=== PATIENT | female | born 1985 | race Caucasian/White ===

== ENCOUNTER 2016-05-06 06:36 | Emergency (ER) | payer SELFPAY ==
[~2016-05-06] VITALS: Ht 152.4 cm; Wt 90.9 kg
[~2016-05-06 06:36] MED LIST: ALBUTEROL17 GM IH; ASACOL400 MG PO; ATARAX10 MG; CELEXA20 MG PO; DOXYCYCLINE HY100 M3 PO; DOXYCYCLINE HY100 MG PO; FLONASE16 GM NS; HYDRALAZINE HCL10 MG PO; IBUPROFEN600 MG PO; LEVAQUIN500 MG PO; PRILOSEC40 MG PO; REMERON15 M2 PO; SERTRALINE HCL50 MG; SYNTHROID100 MCG PO; SYNTHROID25 MCG PO; SYNTHROID50 MCG PO; SYNTHROID75 MCG PO; VALTREX1000 MG PO; VIBRAMYCIN100 MG PO; VICODIN ES 7.51 EAC1 PO
[2016-05-06] MEDS ORDERED: NAPROSYN500 MG PO (07:30)
[2016-05-06] MEDS ORDERED: FLEXERIL10 MG PO (07:38)
[2016-05-06] MEDS ORDERED: MEDROL DOSEPAK4 MG PO (07:38)
[2016-05-06 10:29] LABS: HEMATOCRIT 43.7 % (36.0-46.0); MCH 32.9 PG (29.0-34.0); MCHC 33.9 G/DL (30.0-36.0); MCV 97.1 FL (83-99); MEAN PLAT.VOLUME 9.9 uM^3 (9.5-12.4); PLATELET COUNT 205 K/uL (156-360); RBC DIS.WIDTH-CV 12.8 % (11.8-14.6); RBC DIS.WIDTH-SD 43.8 % (39-53); WHITE BLOOD COUNT 16.9 K/uL (4.1-10.2)
[2016-05-06 10:38] LABS: CHLORIDE 106 mEq/L (99-109); POTASSIUM 4.2 mEq/L (3.7-5.4); SODIUM 138 mEq/L (136-147)
[2016-05-06 10:39] LABS: GLUCOSE 126 mg/dL (70-99)
[2016-05-06 10:41] LABS: ANION GAP 9 MEQ/L (2-14)
[2016-05-06 10:43] LABS: GFR ESTIMATE (CALCULATED) > 59 mL/min/
[2016-05-06 10:44] LABS: UREA NITROGEN (BUN) 9 mg/dL (9-23)
[2016-05-06 11:03] LABS: TROP-I INTERPRETATION NEGATIVE; TROPONIN-I < 0.01 ng/mL (0.0-0.30)
[2016-05-06 13:30] LABS: PROTHROMBIN TIME 10.4 (9.2-11.2); PTT 26.8 (25-32)
[2016-05-06 13:34] LABS: CREATINE KINASE 59 IU/L (1-294); TOTAL CK 59 IU/L (1-294)
[2016-05-06 13:42] LABS: CK-MB 0.5 ng/mL (0.0-4.9)
[2016-05-06 16:18] VITALS: BP 121/78
== END 2016-05-06 16:19 | disposition short-term general hospital (02) ==
LOC: EME 06:36
PROVIDERS: Emergency Medicine
DX: I71.4 Abdominal aortic aneurysm, without rupture (principal); I74.09 Other arterial embolism and thrombosis of abdominal aorta; M54.5 Low back pain; M25.552 Pain in left hip; M79.605 Pain in left leg; F17.200 Nicotine dependence, unspecified, uncomplicated
CPT/HCPCS: 71275; 72100; 73502; 75635; 80048; 82550; 82553; 83605; 84484; 85027; 85610; 85730; 87040; 93926; 99281; 99284; J1100; J2060; J2405; J3010

== ENCOUNTER 2016-05-26 10:02 | Emergency (ER) | payer SELFPAY ==
[~2016-05-26] VITALS: Ht 152.4 cm; Wt 91.0 kg
[~2016-05-26 10:02] MED LIST changes: +FLEXERIL10 MG PO; +MEDROL DOSEPAK4 MG PO; +NAPROSYN500 MG PO
[2016-05-26 12:30] LABS: HEMATOCRIT 33.3 % (36.0-46.0); MCH 32.4 PG (29.0-34.0); MCHC 32.1 G/DL (30.0-36.0); MCV 100.9 FL (83-99); MEAN PLAT.VOLUME 10.5 uM^3 (9.5-12.4); NRBC (%) 0.2 /100 WBC (0-0); RBC DIS.WIDTH-CV 14.6 % (11.8-14.6); RBC DIS.WIDTH-SD 54.1 % (39-53)
[2016-05-26 12:35] LABS: PLATELET COUNT 485 K/uL (156-360); WHITE BLOOD COUNT 9.9 K/uL (4.1-10.2)
[2016-05-26 13:05] LABS: ANION GAP 9 MEQ/L (2-14); CHLORIDE 104 MEQ/L (99-109); GFR ESTIMATE (CALCULATED) > 59 mL/min/; GLUCOSE 94 mg/dL (70-99); SAMPLE HEMOLYSIS CHECK 2; SAMPLE ICTERIC CHECK 0; SAMPLE LIPEMIA CHECK 0; SODIUM 139 MEQ/L (136-147); UREA NITROGEN (BUN) 9 mg/dL (9-23)
[2016-05-26 13:23] LABS: CREATINE KINASE 166 IU/L (1-294); POTASSIUM 4.4 MEQ/L (3.7-5.4); TOTAL CK 166 IU/L (1-294)
[2016-05-26] MEDS ORDERED: XARELTO15 MG PO (13:35)
[2016-05-26] MEDS ORDERED: ASPIRIN81 M2 PO (13:35)
[2016-05-26] MEDS ORDERED: DILAUDID2 MG PO (13:36)
[2016-05-26] MEDS ORDERED: GABAPENTIN100 MG PO (13:37)
[2016-05-26] MEDS ORDERED: LEVOTHYROXINE100 MCG PO (13:37)
[2016-05-26] MEDS ORDERED: PERCOCET 5/31 TABLET PO (15:27)
[2016-05-26] MEDS ORDERED: NEURONTIN100 MG PO (15:27)
[2016-05-26 16:09] VITALS: BP 99/72
== END 2016-05-26 16:10 | disposition home or self-care (01) ==
LOC: EME 10:02
PROVIDERS: Emergency Medicine
DX: G89.18 Other acute postprocedural pain (principal); R10.9 Unspecified abdominal pain; M79.605 Pain in left leg; Z86.718 Personal history of other venous thrombosis and embolism; Z86.711 Personal history of pulmonary embolism; Z79.01 Long term (current) use of anticoagulants; Z79.82 Long term (current) use of aspirin; E03.9 Hypothyroidism, unspecified; F17.200 Nicotine dependence, unspecified, uncomplicated
CPT/HCPCS: 75635; 80048; 82550; 82553; 83605; 85027; 99281; 99285; J2270; J2405; J3010

== ENCOUNTER 2016-06-14 00:57 | Emergency (ER) | payer SELFPAY ==
[~2016-06-14] VITALS: Ht 152.4 cm; Wt 90.9 kg
[~2016-06-14 00:57] MED LIST changes: +ASPIRIN81 M2 PO; +DILAUDID2 MG PO; +GABAPENTIN100 MG PO; +LEVOTHYROXINE100 MCG PO; +NEURONTIN100 MG PO; +PERCOCET 5/31 TABLET PO; +XARELTO15 MG PO
[2016-06-14] MEDS ORDERED: NEURONTIN100 MG PO (01:57)
[2016-06-14] MEDS ORDERED: PERCOCET 5/31 TABLET PO (01:57)
[2016-06-14 02:10] VITALS: BP 104/66
== END 2016-06-14 02:12 | disposition home or self-care (01) ==
LOC: EME 00:57
DX: G89.18 Other acute postprocedural pain (principal); M79.675 Pain in left toe(s); Z86.711 Personal history of pulmonary embolism; Z86.718 Personal history of other venous thrombosis and embolism; Z79.01 Long term (current) use of anticoagulants; Z79.82 Long term (current) use of aspirin; E03.9 Hypothyroidism, unspecified; F17.200 Nicotine dependence, unspecified, uncomplicated
CPT/HCPCS: 99281; 99284; J3010

== ENCOUNTER 2016-07-01 03:59 | Emergency (ER) | payer OTHER ==
[~2016-07-01] VITALS: Ht 152.4 cm; Wt 89.9 kg
[2016-07-01 05:46] LABS: CHLORIDE 107 mEq/L (99-109); POTASSIUM 3.7 mEq/L (3.7-5.4); SODIUM 140 mEq/L (136-147)
[2016-07-01 05:48] LABS: GLUCOSE 111 mg/dL (70-99)
[2016-07-01 05:50] LABS: ANION GAP 11 MEQ/L (2-14)
[2016-07-01 05:52] LABS: GFR ESTIMATE (CALCULATED) > 59 mL/min/
[2016-07-01 05:53] LABS: UREA NITROGEN (BUN) 7 mg/dL (9-23)
[2016-07-01 05:55] LABS: HEMATOCRIT 42.7 % (36.0-46.0); MCH 29.2 PG (29.0-34.0); MCHC 31.9 G/DL (30.0-36.0); MCV 91.8 FL (83-99); MEAN PLAT.VOLUME 10.5 uM^3 (9.5-12.4); PLATELET COUNT 353 K/uL (156-360); RBC DIS.WIDTH-CV 14.7 % (11.8-14.6); RBC DIS.WIDTH-SD 49.8 % (39-53); RED BLOOD COUNT 4.65 M/uL (3.80-5.20); WHITE BLOOD COUNT 9.3 K/uL (4.1-10.2)
[2016-07-01 06:19] LABS: INTER. NORMALIZED RATIO 1.2; PROTHROMBIN TIME 12.2 (9.2-11.2); PTT 32.4 (25-32)
[2016-07-01] MEDS ORDERED: PERCOCET 7.51 TABLET PO (07:29)
[2016-07-01 07:58] VITALS: BP 103/66
== END 2016-07-01 08:00 | disposition home or self-care (01) ==
LOC: EME 03:59
PROVIDERS: Emergency Medicine
DX: I96 Gangrene, not elsewhere classified (principal); G62.9 Polyneuropathy, unspecified; E03.9 Hypothyroidism, unspecified; Z86.718 Personal history of other venous thrombosis and embolism; Z86.711 Personal history of pulmonary embolism; Z79.02 Long term (current) use of antithrombotics/antiplatelets; F17.200 Nicotine dependence, unspecified, uncomplicated
CPT/HCPCS: 73630; 80048; 83605; 85027; 85610; 85730; 99281; 99284; J1170

== ENCOUNTER 2016-11-10 17:14 | Emergency (ER) | payer OTHER ==
[~2016-11-10] VITALS: Ht 152.4 cm; Wt 94.5 kg
[~2016-11-10 17:14] MED LIST changes: +PERCOCET 7.51 TABLET PO
[2016-11-10] MEDS ORDERED: DOXYCYCLINE HY100 MG PO (18:13)
[2016-11-10 18:45] VITALS: BP 112/69
== END 2016-11-10 18:52 | disposition home or self-care (01) ==
LOC: EME 17:14
DX: L03.113 Cellulitis of right upper limb (principal); Z88.0 Allergy status to penicillin; Z88.1 Allergy status to other antibiotic agents; Z88.6 Allergy status to analgesic agent; F17.200 Nicotine dependence, unspecified, uncomplicated
CPT/HCPCS: 99281; 99283

== ENCOUNTER 2017-01-03 17:07 | Emergency (ER) | payer OTHER ==
[~2017-01-03] VITALS: Ht 152.4 cm; Wt 97.3 kg
[2017-01-03 17:54] LABS: HEMATOCRIT 44.9 % (36.0-46.0); MCH 32.1 PG (29.0-34.0); MCHC 33.4 G/DL (30.0-36.0); MCV 96.1 FL (83-99); MEAN PLAT.VOLUME 10.3 uM^3 (9.5-12.4); PLATELET COUNT 311 K/uL (156-360); RBC DIS.WIDTH-CV 13.3 % (11.8-14.6); RBC DIS.WIDTH-SD 47.2 % (39-53); RED BLOOD COUNT 4.67 M/uL (3.80-5.20)
[2017-01-03 18:09] LABS: CHLORIDE 106 mEq/L (99-109); POTASSIUM 3.7 mEq/L (3.7-5.4); SODIUM 139 mEq/L (136-147)
[2017-01-03 18:11] LABS: GLUCOSE 92 mg/dL (70-99)
[2017-01-03 18:12] LABS: ANION GAP 12 MEQ/L (2-14)
[2017-01-03 18:15] LABS: GFR ESTIMATE (CALCULATED) > 59 mL/min/; UREA NITROGEN (BUN) 8 mg/dL (9-23)
[2017-01-03 18:17] LABS: TROP-I INTERPRETATION NEGATIVE; TROPONIN-I < 0.01 ng/mL (0.0-0.30)
[2017-01-03 18:24] LABS: QUANTITATIVE HCG < 4.0 MIU/ML
[2017-01-03 19:20] LABS: D-DIMER ELISA < 150.00 ng/mLDDU (<230)
[2017-01-03 20:56] VITALS: BP 100/76
== END 2017-01-03 20:32 | disposition left against medical advice (07) ==
LOC: EME 17:07
PROVIDERS: Nurse Practitioner Family
DX: R07.2 Precordial pain (principal); Z86.718 Personal history of other venous thrombosis and embolism; Z86.711 Personal history of pulmonary embolism; E03.9 Hypothyroidism, unspecified; Z79.01 Long term (current) use of anticoagulants; Z79.82 Long term (current) use of aspirin; F17.200 Nicotine dependence, unspecified, uncomplicated; Z53.20 Procedure and treatment not carried out because of patient's decision for unspecified reasons
CPT/HCPCS: 71020; 80048; 84484; 84702; 85027; 85379; 93005; 99281; 99282

== ENCOUNTER 2017-03-05 14:12 | Emergency (ER) | payer OTHER ==
[~2017-03-05] VITALS: Ht 152.4 cm; Wt 100.6 kg
[2017-03-05] MEDS ORDERED: NAPROSYN500 MG PO (17:45)
[2017-03-05] MEDS ORDERED: FLEXERIL10 MG PO (17:45)
[2017-03-05 17:55] VITALS: BP 106/74
== END 2017-03-05 17:56 | disposition home or self-care (01) ==
LOC: EME 14:12
DX: M79.621 Pain in right upper arm (principal); M54.2 Cervicalgia; D68.2 Hereditary deficiency of other clotting factors; Z86.718 Personal history of other venous thrombosis and embolism; Z86.711 Personal history of pulmonary embolism; E03.9 Hypothyroidism, unspecified; J45.909 Unspecified asthma, uncomplicated; F41.9 Anxiety disorder, unspecified; F32.9 Major depressive disorder, single episode, unspecified; F17.200 Nicotine dependence, unspecified, uncomplicated; Z79.01 Long term (current) use of anticoagulants; Z79.82 Long term (current) use of aspirin; Z88.5 Allergy status to narcotic agent; Z88.2 Allergy status to sulfonamides; Z88.1 Allergy status to other antibiotic agents; Z88.0 Allergy status to penicillin; Z88.6 Allergy status to analgesic agent
CPT/HCPCS: 93971; 99281; 99284

== ENCOUNTER 2017-05-04 11:51 | Emergency (ER) | payer OTHER ==
[~2017-05-04] VITALS: Ht 152.4 cm; Wt 104.5 kg
[2017-05-04 16:33] LABS: HEMOGLOBIN 14.3 G/DL (11.9-15.5); MCH 33.3 PG (29.0-34.0); MCHC 33.3 G/DL (30.0-36.0); PLATELET COUNT 311 K/uL (156-360); RBC DIS.WIDTH-CV 13.4 % (11.8-14.6); RBC DIS.WIDTH-SD 49.3 % (39-53); WHITE BLOOD COUNT 10.1 K/uL (4.1-10.2)
[2017-05-04 16:45] LABS: CHLORIDE 105 mEq/L (99-109); POTASSIUM 3.8 mEq/L (3.7-5.4); SODIUM 141 mEq/L (136-147)
[2017-05-04 16:46] LABS: GLUCOSE 101 mg/dL (70-99)
[2017-05-04 16:50] LABS: INTER. NORMALIZED RATIO 1.4
[2017-05-04 16:50] LABS: CREATININE 0.7 mg/dL (0.6-1.3); GFR ESTIMATE (CALCULATED) > 59 mL/min/
[2017-05-04 16:51] LABS: UREA NITROGEN (BUN) 6 mg/dL (9-23)
[2017-05-04 16:53] LABS: PTT 33.3 SEC (25-37)
[2017-05-04 17:00] LABS: QUANTITATIVE HCG < 4.0 MIU/ML
[2017-05-04 18:41] VITALS: BP 111/60
== END 2017-05-04 18:49 | disposition home or self-care (01) ==
LOC: EME 11:51
PROVIDERS: Physician Assistant
DX: R60.0 Localized edema (principal); E03.9 Hypothyroidism, unspecified; J45.909 Unspecified asthma, uncomplicated; B00.9 Herpesviral infection, unspecified; F41.9 Anxiety disorder, unspecified; F32.9 Major depressive disorder, single episode, unspecified; F17.200 Nicotine dependence, unspecified, uncomplicated; Z79.01 Long term (current) use of anticoagulants; Z79.82 Long term (current) use of aspirin; Z86.718 Personal history of other venous thrombosis and embolism; Z86.711 Personal history of pulmonary embolism; Z88.1 Allergy status to other antibiotic agents; Z88.6 Allergy status to analgesic agent; Z88.5 Allergy status to narcotic agent; Z88.0 Allergy status to penicillin; Z88.2 Allergy status to sulfonamides
CPT/HCPCS: 71046; 74177; 80048; 83880; 84702; 85027; 85610; 85730; 93970; 99281; 99284; J7030

== ENCOUNTER 2017-08-30 15:37 | Emergency (ER) | payer OTHER ==
[~2017-08-30] VITALS: Ht 152.4 cm; Wt 104.6 kg
[~2017-08-30 15:37] MED LIST changes: +LEVOTHYROXINE125 MCG PO; +MAGNESIUM250 MG PO; +MORPHINE SULFAT15 M1 PO; +NEURONTIN600 MG PO; +OXYCODONE-APAP1 EACH PO; +PAXIL20 MG PO
[2017-08-30 16:41] LABS: HEMATOCRIT 45.6 % (36.0-46.0); HEMOGLOBIN 15.7 G/DL (11.9-15.5); MCH 32.2 PG (29.0-34.0); MCHC 34.4 G/DL (30.0-36.0); MCV 93.4 FL (83-99); PLATELET COUNT 272 K/uL (156-360); RBC DIS.WIDTH-CV 14.5 % (11.8-14.6); RBC DIS.WIDTH-SD 49.7 % (39-53); RED BLOOD COUNT 4.88 M/uL (3.80-5.20); WHITE BLOOD COUNT 12.5 K/uL (4.1-10.2)
[2017-08-30 16:52] LABS: ALBUMIN 4.3 g/dL (3.2-4.8); CHLORIDE 105 mEq/L (99-109); SODIUM 140 mEq/L (136-147)
[2017-08-30 16:54] LABS: GLUCOSE 122 mg/dL (70-99)
[2017-08-30 16:55] LABS: TOTAL PROTEIN 7.4 g/dL (6.4-8.3)
[2017-08-30 16:56] LABS: TOTAL BILIRUBIN 0.5 mg/dL (0.0-1.0)
[2017-08-30 16:58] LABS: ALKALINE PHOSPHATASE 108 IU/L (3-129); CREATININE 0.8 mg/dL (0.6-1.3); GFR ESTIMATE (CALCULATED) > 59 mL/min/
[2017-08-30 16:59] LABS: UREA NITROGEN (BUN) 9 mg/dL (9-23)
[2017-08-30 17:00] LABS: AST (GOT) 35 IU/L (2-34)
[2017-08-30 17:01] LABS: ALT (GPT) 41 IU/L (3-49)
[2017-08-30 18:40] LABS: QUANTITATIVE HCG < 4.0 MIU/ML
[2017-08-30 20:11] VITALS: BP 108/65
== END 2017-08-30 20:12 | disposition home or self-care (01) ==
LOC: EME 15:37
PROVIDERS: Emergency Medicine
DX: R10.84 Generalized abdominal pain (principal); E06.3 Autoimmune thyroiditis; F17.200 Nicotine dependence, unspecified, uncomplicated; Z86.718 Personal history of other venous thrombosis and embolism; Z79.01 Long term (current) use of anticoagulants; F32.9 Major depressive disorder, single episode, unspecified; F41.9 Anxiety disorder, unspecified; J45.909 Unspecified asthma, uncomplicated; Z79.82 Long term (current) use of aspirin; Z88.5 Allergy status to narcotic agent; Z88.2 Allergy status to sulfonamides; Z88.1 Allergy status to other antibiotic agents; Z88.0 Allergy status to penicillin
CPT/HCPCS: 74177; 80053; 84702; 85027; 99281; 99285; J3010; J7030